=== PATIENT | male | born 1945 | race Caucasian/White ===

== ENCOUNTER 2018-06-26 09:55 | Day surgery (SDC) | payer MEDICARE ==
[~2018-06-26] VITALS: Ht 172.7 cm; Wt 71.7 kg
[2018-06-26] VITALS (10 sets, daily range): BP systolic 110–147; BP diastolic 60–87
--- NOTE | 2018-06-26 09:16 | Pre-Procedure Note/Attestation ---
Pre-Procedure Note/Attestation Complete Prior to Procedure Planned Procedure: right Procedure Narrative: shoulder arthroscopy, sad Indications for Procedure Pre-Operative Diagnosis: right shoulder impingement Attestation I attest that I discussed the nature of the procedure; its benefits; risks and complications; and alternatives (and the risks and benefits of such alternatives ), prior to the procedure, with the patient (or the patient's legal indirect sales representative). I attest that, if there was a reasonable possibility of needing a blood transfusion, the patient (or the patient's legal indirect sales representative) was given the [facility] standardized written summary, pursuant to the [place] Blood Safety Act ([place] Health and Safety Code # 1645, as amended). I attest that I re-evaluated the patient just prior to the surgery and that there has been no change in the patient's H&P, except as documented below: Brett Del Valle MD Jun 26, 2018 09:16
--- NOTE | 2018-06-26 09:17 | Operative Note - PDOC ---
Operative Note Operative Note Pre-op Diagnosis: right shoulder impingement Procedure: see op report Post-op Diagnosis: same as pre-op plus Operative Findings: consistent w/pre-op dx studies Anesthesia: regional Specimen: none Complications: none Condition: stable Estimated Blood Loss: none Implant(s) used?: No Brett Del Valle MD Jun 26, 2018 09:17
[~2018-06-26 09:55] MED LIST: D5 1/2NS 1,000 ML IV SCH; HYDROcodone/Acetamin 5/325 tab ORAL PRN; HYDROmorphone 1mg/ml Carpuject SUBQ PRN; Tylenol #3 tab (300mg/30mg) ORAL PRN; ceFAZolin 1gm IVPB IVPB ONE; oxyCONTIN 20mg tab ORAL ONE
[2018-06-26] MEDS ORDERED: ATORVASTATIN CA80 MG ORAL (10:35)
[2018-06-26] MEDS ORDERED: VITAMIN D1000 UNI1 ORAL (10:35)
[2018-06-26] MEDS ORDERED: PROPRANOLOL HCL40 MG ORAL (10:35)
[2018-06-26] MEDS ORDERED: METFORMIN HCL500 M1 ORAL (10:35)
[2018-06-26] MEDS ORDERED: SINGULAIR10 MG ORAL (10:35)
[2018-06-26] MEDS ORDERED: MULTIVITAMINS1 EAC2 ORAL (10:35)
[2018-06-26] MEDS ORDERED: oxyCONTIN 20mg tab ORAL ONE (10:50)
[2018-06-26] MEDS ORDERED: LR 1000ml 1,000 ML IVLG SCH ×2 (10:58→13:20)
--- NOTE | 2018-06-26 10:58 | Anethesia Preoperative Eval ---
Anesthesia Pre-op PMH/ROS General Date of Evaluation: Jun 26, 2018 Anesthesiologist: Carmelo ASA Score: ASA 2 Mallampati Score Class I : Soft palate, uvula, fauces, pillars visible Class II: Soft palate, uvula, fauces visible Class III: Soft palate, base of uvula visible Class IV: Only hard plate visible Mallampati Classification: Class II Surgeon: Eligio Diagnosis: Right shoulder internal derangement Surgical Procedure: Right shoulder arthroscopy Anesthesia History: none Family History: no anesthesia problems Allergies: Coded Allergies: SULFA (SULFONAMIDE ANTIBIOTICS) (Verified Allergy, Severe, 06/26/18) RASH Medications: see eMAR Patient NPO?: Yes NPO Date: Jun 25, 2018 NPO Time: 22:00 Past Medical History Cardiovascular: Reports: HTN, other - HLD; Denies: CAD, [place], valve dz, arrhythmia Pulmonary: Denies: asthma, COPD, MIKE, other Gastrointestinal/Genitourinary: Denies: GERD, CRI, ESRD, other Neurologic/Psychiatric: Denies: dementia, CVA, depression/anxiety, TIA, other Endocrine: Reports: DM; Denies: hypothyroidism, steroids, other HEENT: Denies: cataract (L), cataract (R), glaucoma, [place] (L[place] (R), other Hematology/Immune: Denies: anemia, DVT, bleeding disorder, other Musculoskeletal/Integumentary: Denies: OA, RA, DJD, DDD, edema, other PSxH Narrative: Denies Anesthesia Pre-op Phys. Exam Physician Exam Last Vital Signs Date Time Temp Pulse Resp B/P (MAP) Pulse Ox O2 Delivery O2 Flow Rate FiO2 06/26/18 10:36 Room Air 06/26/18 10:30 97.7 65 18 137/81 96 Constitutional: NAD Cardiovascular: RRR Respiratory: CTA Airway Exam Mallampati Score: Class II MO: limited ROM: limited Anesthesia Pre-op A/P Labs see chart Studies Pre-op Studies: EKG - sr Risk Assessment & Plan Assessment: ASA II Plan: GA Status Change Before Surgery: No Pre-Antibiotics Drug: Clindamycin 600mg Given Within 1 Hr of Incision: Yes Time Given: 10:45 Sophia Barker MD Jun 26, 2018 10:58
[2018-06-26] MEDS ORDERED: DiphenhydrAMINE 50mg/ml Inj IVP PRN ×2 (11:00→13:30)
[2018-06-26] MEDS ORDERED: LORazepam Inj 2mg/ml 1ml IV PRN ×2 (11:00→13:30)
[2018-06-26] MEDS ORDERED: fentaNYL 100 mcg/2 mL IV PRN ×2 (11:00→13:30)
[2018-06-26] MEDS ORDERED: Hydromorphone 0.5mg/0.5ml inj IVP PRN ×2 (11:00→13:30)
[2018-06-26] MEDS ORDERED: Midazolam 2mg/2ml Inj IVP PRN ×2 (11:00→13:30)
[2018-06-26] MEDS ORDERED: Ketorolac 30mg Inj IV PRN ×3 (11:00→13:30)
[2018-06-26] MEDS ORDERED: Metoclopramide 10mg/2ml Inj IVP PRN ×2 (11:00→13:30)
[2018-06-26] MEDS ORDERED: Bupivacaine 0.25% Inj 30ml INJ ONE (12:19)
[2018-06-26] MEDS ORDERED: EPINEPHrine 1mg/1ml Amp ONE ×2 (12:19→12:42)
[2018-06-26] MEDS ORDERED: LR 1000ml ONE (12:30)
[2018-06-26] MEDS ORDERED: NS Irrig 1000ml ONE (12:30)
[2018-06-26] MEDS ORDERED: Kenalog-40 1ml Vial ONE (12:33)
[2018-06-26] MEDS ORDERED: Morphine Sulfate PF 10 ML ONE (12:33)
[2018-06-26] MEDS ORDERED: Ketorolac 30mg Inj ONE (12:33)
[2018-06-26] MEDS ORDERED: Lidocaine 1% MPF 10mg/ml 5ml ONE (12:34)
[2018-06-26] MEDS ORDERED: Dexamethasone 4mg/ml vial ONE ×2 (12:34→12:42)
[2018-06-26] MEDS ORDERED: Sodium Chloride 10ml vial INJ ONE (12:34)
[2018-06-26] MEDS ORDERED: Propofol 200mg/20ml IV ONE (12:34)
[2018-06-26] MEDS ORDERED: Midazolam 2mg/2ml Inj ONE (12:38)
[2018-06-26] MEDS ORDERED: Ropivacaine 5mg/ml Vial 30ml INJ ONE (12:42)
[2018-06-26] MEDS ORDERED: NS Irrig 4000ml IRRIG ONE (12:56)
[2018-06-26] MEDS ORDERED: Phenylephrine 10mg/ml Vial ONE (13:06)
[2018-06-26] MEDS ORDERED: Glycopyrrolate 0.2mg/ml 1ml Vial ONE (13:08)
--- NOTE | 2018-06-26 13:22 | Immediate Post-Op Evaluation ---
Immediate Post-Op Evalulation Immediate Post-Op Evalulation Procedure: R Shoulder Aerthroscopy Date of Evaluation: Jun 26, 2018 Time of Evaluation: 14:30 IV Fluids: 1000 LR Blood Products: 0 Estimated Blood Loss: 17 Urinary Output: 0 Blood Pressure Systolic: 147 Blood Pressure Diastolic: 88 Pulse Rate: 73 Respiratory Rate: 16 O2 Sat by Pulse Oximetry: 99 Temperature (Fahrenheit): 97.3 Pain Score (1-10): 1 Nausea: No Vomiting: No Complications 0 Patient Status: awake, reacts, patent, none Hydration Status: adequate Dru Gram Ancef IV Given Within 1 Hr of Incision: Yes Time Given: 13:01 Keanu Abarca MD Jun 26, 2018 13:22
[2018-06-26] MEDS ORDERED: Atropine Sulfate 0.4mg/ml inj IVP PRN (13:30)
[2018-06-26] MEDS ORDERED: HYDROcodone/Acetamin 5/325 tab ORAL PRN ×2 (13:30→16:01)
[2018-06-26] MEDS ORDERED: oxyCODONE HCL/Acetaminophen 5/325mg ORAL PRN (13:30)
[2018-06-26] MEDS ORDERED: HYDROcodone/Acetamin 7.5/325 tab ORAL PRN (13:30)
[2018-06-26] MEDS ORDERED: Meperidine 50mg/ml Inj(FOR RIGORS ONLY) IVP PRN (13:30)
[2018-06-26] MEDS ORDERED: Labetalol 5mg/ml 20ml vial IV PRN (13:30)
[2018-06-26] MEDS ORDERED: Duramorph PF 10mg/10ml amp EPIDUR ONE (13:33)
--- NOTE | 2018-06-26 15:13 | 48 Hour Post Anesthesia Eval ---
Post Anesthesia Evaluation Procedure: R Shoulder Aerthroscopy Date of Evaluation: Jun 26, 2018 Airway: patent Nausea: No Vomiting: No Pain Intensity: 1 Hydration Status: adequate Cardiopulmonary Status: Stable Mental Status/LOC: patient returned to baseline Follow-up Care/Observations: 0 Post-Anesthesia Complications: 0 Follow-up care needed: ready to discharge Keanu Abarca MD Jun 26, 2018 15:13
[2018-06-26] MEDS ORDERED: Tylenol #3 tab (300mg/30mg) ORAL PRN (16:01)
[2018-06-26] MEDS ORDERED: HYDROmorphone 1mg/ml Carpuject SUBQ PRN (16:01)
[2018-06-26] MEDS ORDERED: D5 1/2NS 1,000 ML IV SCH (16:01)
--- NOTE | 2018-06-26 19:30 | Operative Note - Dictated ---
DATE OF OPERATION: 06/26/2018 PREOPERATIVE DIAGNOSES: 1. Right shoulder partial rotator cuff tear. 2. Right shoulder impingement syndrome. POSTOPERATIVE DIAGNOSES: 1. Right shoulder intra-articular loose bodies. 2. Right shoulder posterior lateral humeral head chondral damage. 3. Right shoulder, partial articular sided rotator cuff tear. 4. Right shoulder impingement syndrome, bursitis. PROCEDURES: 1. Right shoulder arthroscopy and removal of intra-articular loose bodies. 2. Right shoulder extensive intra-articular debridement. 3. Right shoulder subacromial decompression and bursectomy. 4. Right shoulder rotator cuff repair/debridement. SURGEON: Brett Del Valle M.D. ANESTHESIA: General with interscalene. INDICATION FOR PROCEDURE: The patient is a pleasant gentleman, who has had progressive right shoulder pain and difficulty with overhead activities, failed conservative treatment, elected to undergo right shoulder diagnostic arthroscopy and decompression bursectomy. MRI was done which revealed possible high-grade partial rotator cuff tear and therefore the possibility of rotator cuff repair was discussed with the patient. Risks, limitations, expectations, complications of procedure were discussed in detail. All questions addressed. DESCRIPTION OF PROCEDURE: After informed consent was obtained, the patient was brought to the operating room and placed under general anesthesia. Right shoulder was prepped and draped in a sterile manner. Time-out was performed. A posterolateral stab incision was then made. Trocar was introduced into the glenohumeral joint. There was intraocular loose bodies that were floating around. The medial working portal was established. Intraarticular loose bodies were then removed. Once that was done, the diagnostic arthroscopy was continued. There was no significant anterior labral pathology. There was some mild chondral damage in the anterior and lateral humeral head. The biceps tendon appeared to be intact. There was some partial tears of the articular side of the rotator cuff but the footprint was relatively intact. A spinal needle was then placed through this area. Camera was then repositioned in the subacromial space to better evaluate the bursal side of the rotator cuff. A complete bursectomy was performed. The undersurface of the acromion was identified. Acromioplasty was started from lateral to medial and completed from posterior to anterior. Once that was done, the bursal side of the rotator cuff appeared to be grossly intact. There was some fraying in the bursal-sided rotator cuff, possible partial tear. This was debrided. Once the debridement was completed, the camera was repositioned in the glenohumeral joint. The area of the supraspinatus was again identified. The camera was then repositioned in the subacromial space. It was felt that formal repair was not required. At this point, the instruments were removed. Portal sites were closed using 3-0 Monocryl sutures. Steri-Strips and a sterile dressing were applied. The patient was awoken and taken to recovery room with stable vital signs. ESTIMATED BLOOD LOSS: None. COMPLICATIONS: None. SPECIMENS: None. IMPLANTS: None. Brett Del Valle M.D. DR: Tu JOB#: [id number] CC:
== END 2018-06-26 15:55 | disposition home or self-care (01) ==
LOC: SUR 09:55
DX: M75.111 Incomplete rotator cuff tear or rupture of right shoulder, not specified as traumatic (principal); M75.41 Impingement syndrome of right shoulder; M71.9 Bursopathy, unspecified; M24.011 Loose body in right shoulder; Z88.2 Allergy status to sulfonamides; I10 Essential (primary) hypertension; E78.5 Hyperlipidemia, unspecified; E11.9 Type 2 diabetes mellitus without complications
CPT/HCPCS: 29823; 82962; J0171; J0690; J1100; J1885; J2250; J2274; J2370; J2405; J2704; J2795; J3301; J3490; 94003; 94150

== ENCOUNTER 2018-11-20 10:29 | Day surgery (SDC) | payer MEDICARE ==
[2018-11-20] VITALS (9 sets, daily range): BP systolic 112–148; BP diastolic 60–77
[~2018-11-20] VITALS: Ht 175.3 cm; Wt 73.5 kg
--- NOTE | 2018-11-20 07:46 | Pre-Procedure Note/Attestation ---
Pre-Procedure Note/Attestation Complete Prior to Procedure Planned Procedure: right Procedure Narrative: carpel tunnel relaesae Indications for Procedure Pre-Operative Diagnosis: right carpel tunnel Attestation I attest that I discussed the nature of the procedure; its benefits; risks and complications; and alternatives (and the risks and benefits of such alternatives ), prior to the procedure, with the patient (or the patient's legal patient intake representative). I attest that, if there was a reasonable possibility of needing a blood transfusion, the patient (or the patient's legal patient intake representative) was given the [facility] standardized written summary, pursuant to the [place] Blood Safety Act ([place] Health and Safety Code # 1645, as amended). I attest that I re-evaluated the patient just prior to the surgery and that there has been no change in the patient's H&P, except as documented below: Brett Del Valle MD Nov 20, 2018 07:46
--- NOTE | 2018-11-20 07:46 | Operative Note - PDOC ---
Operative Note Operative Note Pre-op Diagnosis: right carpel tunnel Procedure: see op report Post-op Diagnosis: same as pre-op plus Anesthesia: MAC Specimen: none Complications: none Condition: stable Estimated Blood Loss: none Implant(s) used?: No Brett Del Valle MD Nov 20, 2018 07:46
[~2018-11-20 10:29] MED LIST changes: +ATORVASTATIN CA80 MG ORAL; +METFORMIN HCL500 M1 ORAL; +MULTIVITAMINS1 EAC2 ORAL; +PROPRANOLOL HCL40 MG ORAL; +SINGULAIR10 MG ORAL; +VITAMIN D1000 UNI1 ORAL; +celeBREX 200mg Cap **SURGERY PATIENTS ONLY ORAL ONE
--- NOTE | 2018-11-20 11:08 | Anethesia Preoperative Eval ---
Anesthesia Pre-op PMH/ROS General Date of Evaluation: Nov 20, 2018 Anesthesiologist: Carmelo ASA Score: ASA 2 Mallampati Score Class I : Soft palate, uvula, fauces, pillars visible Class II: Soft palate, uvula, fauces visible Class III: Soft palate, base of uvula visible Class IV: Only hard plate visible Mallampati Classification: Class II Surgeon: Eligio Diagnosis: Right carpal tunnel Surgical Procedure: right carpal tunnel release Anesthesia History: none Family History: no anesthesia problems Allergies: Coded Allergies: SULFA (SULFONAMIDE ANTIBIOTICS) (Verified Allergy, Severe, 11/20/18) RASH Medications: see eMAR Patient NPO?: Yes NPO Date: Nov 19, 2018 NPO Time: 22:00 Past Medical History Cardiovascular: Reports: HTN, other - HLD; Denies: CAD, [place], valve dz, arrhythmia Pulmonary: Denies: asthma, COPD, [place], other Gastrointestinal/Genitourinary: Denies: GERD, CRI, ESRD, other Neurologic/Psychiatric: Denies: dementia, CVA, depression/anxiety, TIA, other Endocrine: Reports: DM; Denies: hypothyroidism, steroids, other HEENT: Denies: cataract (L), cataract (R), glaucoma, [place] (L), [place] (R), other Hematology/Immune: Denies: anemia, DVT, bleeding disorder, other Musculoskeletal/Integumentary: Denies: OA, RA, DJD, DDD, edema, other PSxH Narrative: right shoulder surgery Anesthesia Pre-op Phys. Exam Physician Exam see chart Constitutional: NAD Cardiovascular: RRR Respiratory: CTA Airway Exam Mallampati Score: Class II MO: full ROM: full Anesthesia Pre-op A/P Labs see chart Studies Pre-op Studies: EKG - sr Risk Assessment & Plan Assessment: ASA II Plan: MAC Status Change Before Surgery: No Pre-Antibiotics Drug: Ancef 1g Given Within 1 Hr of Incision: Yes Sophia Barker MD Nov 20, 2018 11:08
[2018-11-20] MEDS ORDERED: oxyCONTIN 20mg tab ORAL ONE (11:09)
[2018-11-20] MEDS ORDERED: LR 1000ml 1,000 ML IVLG SCH (11:11)
[2018-11-20] MEDS ORDERED: Ketorolac 30mg Inj IV PRN (11:15)
[2018-11-20] MEDS ORDERED: fentaNYL 100 mcg/2 mL IV PRN (11:15)
[2018-11-20] MEDS ORDERED: DiphenhydrAMINE 50mg/ml Inj IVP PRN (11:15)
[2018-11-20] MEDS ORDERED: LORazepam Inj 2mg/ml 1ml IV PRN (11:15)
[2018-11-20] MEDS ORDERED: Metoclopramide 10mg/2ml Inj IVP PRN (11:15)
[2018-11-20] MEDS ORDERED: Hydromorphone 0.5mg/0.5ml inj IVP PRN (11:15)
[2018-11-20] MEDS ORDERED: Midazolam 2mg/2ml Inj IVP PRN (11:15)
[2018-11-20] MEDS ORDERED: Bupivacaine 0.25% Inj 30ml INJ ONE (11:56)
[2018-11-20] MEDS ORDERED: Lidocaine 1% MPF 10mg/ml 5ml ONE (12:02)
[2018-11-20] MEDS ORDERED: Propofol 200mg/20ml IV ONE (12:02)
[2018-11-20] MEDS ORDERED: NS Irrig 1000ml IRRIG ONE ×2 (12:20→12:40)
--- NOTE | 2018-11-20 12:58 | Immediate Post-Op Evaluation ---
Immediate Post-Op Evalulation Immediate Post-Op Evalulation Procedure: Right carpal tunnel release Date of Evaluation: Nov 20, 2018 Time of Evaluation: 13:00 IV Fluids: 400 Blood Products: 0 Estimated Blood Loss: min Urinary Output: 0 Blood Pressure Systolic: 148 Blood Pressure Diastolic: 76 Pulse Rate: 65 Respiratory Rate: 16 O2 Sat by Pulse Oximetry: 100 Temperature (Fahrenheit): 97.4 Pain Score (1-10): 0 Nausea: No Vomiting: No Complications 0 Patient Status: awake, reacts, patent, none Hydration Status: adequate Drug: Ancef 1g Given Within 1 Hr of Incision: Yes Sophia Barker MD Nov 20, 2018 12:58
--- NOTE | 2018-11-20 12:59 | 48 Hour Post Anesthesia Eval ---
Post Anesthesia Evaluation Procedure: Right carpal tunnel release Date of Evaluation: Nov 20, 2018 Airway: patent Nausea: No Vomiting: No Pain Intensity: 0 Hydration Status: adequate Cardiopulmonary Status: at baseline Mental Status/LOC: patient returned to baseline Post-Anesthesia Complications: 0 Follow-up care needed: ready to discharge Sophia Barker MD Nov 20, 2018 12:59
--- NOTE | 2018-11-20 17:00 | Operative Note - Dictated ---
DATE OF OPERATION: 11/20/2018 PREOPERATIVE DIAGNOSIS: Right wrist carpal tunnel syndrome. POSTOPERATIVE DIAGNOSIS: Right wrist carpal tunnel syndrome. PROCEDURES: 1. Right median nerve decompression. 2. Synovectomy right flexor tendons (carpal tunnel). SURGEON: Brett Del Valle M.D. ANESTHESIA: MAC. INDICATION FOR PROCEDURE: The patient is a pleasant gentleman who has had progressive bilateral hand numbness and tingling, the right worse than the left. He elected to undergo right carpal tunnel release. Risks, limitations, expectations, and complications of procedure were discussed in detail. All questions addressed. DESCRIPTION OF PROCEDURE: After informed consent was obtained, the patient was brought to the operating room. The patient was placed under monitored anesthesia control. Right arm was prepped and draped in a sterile manner. Esmarch used to exsanguinate the extremity. Anterior skin incision was then made. Subcutaneous fascia was dissected. Palmar fascia was dissected. The transverse carpal ligament was then incised using direct visualization. Once the carpal tunnel was entered, the transverse carpal ligament was then released proximally and distally. Once that was done, synovectomy of flexor tendon in the carpal tunnel was performed. Once this was done, the wound was copiously irrigated. The skin was approximated using nylon sutures. Compression dressing was applied. The patient was awoken and taken to recovery with stable vital signs. ESTIMATED BLOOD LOSS: None. COMPLICATIONS: None. SPECIMENS: None. Brett Del Valle M.D. DR: LAWRENCE JOB#: [id number] CC:
== END 2018-11-20 14:10 | disposition home or self-care (01) ==
LOC: SUR 10:29
DX: G56.01 Carpal tunnel syndrome, right upper limb (principal); I10 Essential (primary) hypertension; E78.5 Hyperlipidemia, unspecified; E11.9 Type 2 diabetes mellitus without complications; Z88.2 Allergy status to sulfonamides
CPT/HCPCS: 25105; 64721; J0690; J1200; J2250; J2704; J3010; J3490; 94003; 94150